=== PATIENT | female | born 1960 | race Caucasian/White ===

== ENCOUNTER → 2023-03-30 07:36 | Outpatient (REF) | payer MEDICARE, BC, OTHER, SELFPAY | LOC: WDC 07:36 | PROVIDERS: ATTENDING PHYSICIAN Family Medicine | DX: R92.2 Inconclusive mammogram (principal) | CPT/HCPCS: 76641 ==

== ENCOUNTER → 2023-12-29 09:01 | Outpatient (REF) | payer MEDICARE, SELFPAY | LOC: RAD 09:01 | PROVIDERS: ATTENDING PHYSICIAN Surgery Vascular Surgery; FAMILY PHYSICIAN Family Medicine | DX: I77.9 Disorder of arteries and arterioles, unspecified (principal); I65.23 Occlusion and stenosis of bilateral carotid arteries | CPT/HCPCS: 93880; 93922; 93925 ==

== ENCOUNTER → 2024-04-01 08:34 | Outpatient (REF) | payer OTHER, SELFPAY | LOC: WDC 08:34 | PROVIDERS: ATTENDING PHYSICIAN Family Medicine | DX: R92.2 Inconclusive mammogram (principal); Z12.39 Encounter for other screening for malignant neoplasm of breast | CPT/HCPCS: 76641 ==

== ENCOUNTER 2025-01-20 05:27 | Emergency (ER) | payer OTHER, SELFPAY ==
[2025-01-20 05:28] VITALS: BP 185/91; BMI 32.3
[2025-01-20 06:38] VITALS: BP 173/83
[2025-01-20 07:10] LABS: Urine Character Clear (Clear)
[2025-01-20 07:11] VITALS: BP 175/86
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
[2025-01-20 09:17] VITALS: BP 164/78
== END 2025-01-20 09:18 | disposition home or self-care (01) ==
LOC: EMR 05:27
PROVIDERS: EMERGENCY PHYSICIAN Emergency Medicine; FAMILY PHYSICIAN Family Medicine
DX: S09.90XA Unspecified injury of head, initial encounter (principal); W18.39XA Other fall on same level, initial encounter; Y93.01 Activity, walking, marching and hiking; Y92.008 Other place in unspecified non-institutional (private) residence as the place of occurrence of the external cause; E11.9 Type 2 diabetes mellitus without complications; I10 Essential (primary) hypertension; I69.354 Hemiplegia and hemiparesis following cerebral infarction affecting left non-dominant side; J44.9 Chronic obstructive pulmonary disease, unspecified; M54.2 Cervicalgia; G89.21 Chronic pain due to trauma; Z79.82 Long term (current) use of aspirin; Z87.891 Personal history of nicotine dependence
CPT/HCPCS: 99284; 70450; 81003; 81015

== ENCOUNTER 2025-01-21 02:12 | Emergency (ER) | payer OTHER, SELFPAY ==
[2025-01-21 02:17] VITALS: BP 148/83
[2025-01-21 02:18] VITALS: BP 161/84
--- NOTE | 2025-01-21 02:22 | ED.GENMED ---
Addendum entered and electronically signed by Charlie Collier DO 01/21/25 08:59:
6 AM ER attending signout pending case management PT evaluation
Asked to reevaluate the patient had numerous questions, on exam patient is calm cooperative smiling
Denies dysuria frequency is undergone CT scan knee x-ray, is convinced that she is weaker than normal on the right side when he tried to lift her x 2, she has chronic left-sided plegia from a stroke
CT scan report noted, x-ray of the knee noted will check CBC CMP await PT evaluation
Original Note:
History of Present Illness
General
Chief Complaint: Musculo-Skeletal Complaint
Source: patient
Exam Limitations: none
Time Seen by Provider: 01/21/25 02:20
Nursing documentation reviewed up to this point in time: agreed with
History of Present Illness
History of Present Illness:
Note:
CHIEF COMPLAINT(S)
Fall incident with pain in the knee
HISTORY OF PRESENT ILLNESS
The patient is a 64-year-old female with history of CVA with residual left-sided paralysis, COPD, hypertension, GERD, diabetes, primarily wheelchair-bound presents today with concerns of right knee pain following a fall. She presented following a
fall that occurred this morning while attempting to transfer from her bed to the wheelchair. The patient reports losing balance and falling onto her right knee and buttocks. The the fall was not preceded by dizziness or any syncope. Notably, she
suffered a similar fall the previous day that resulted in hitting her head, although todays incident did not involve a head injury. She denies headache, neck pain. Despite these falls, the patient denies frequent falling episodes, noting only two
recent occurrences recently. Pain is primarily localized to the knees and buttocks on the right side. The patient has not taken any medication for the pain. She does not report any new pain in the elbows or other areas. She is declining medication
for pain at this time. She reports that EMS was called because she could not get up from the floor on her own. She reports that she used to do physical therapy but has not had any physical therapy recently. Her neurologist is Dr. Vera and she
does not recall the last time she saw her. She denies new right sided weakness, headache, speech difficulty, confusion.
PAST MEDICAL AND SURGICAL HISTORY
The patient follows up with a neurologist, Dr. Vera, although she has not been seen recently.
PHYSICAL EXAM
General: Alert, no acute distress.
Skin: Warm, dry.
Head: Normocephalic, atraumatic.
Neck: Supple, trachea midline. No midline spinal tenderness
Eye Ears, nose, mouth and throat: Oral mucosa moist.
Cardiovascular: Regular rate and rhythm normal peripheral perfusion, No edema.
Respiratory: Respirations are non-labored. No wheezes, rales, rhonchi
Gastrointestinal: Abdomen nondistended, no tenderness to palpation.
Back: Normal range of motion, Normal alignment.
Musculoskeletal: Normal range of motion, normal strength. Mild tenderness to palpation along the right anterior knee, no ecchymosis or swelling noted. No joint laxity no pain with passive ROM. No pain with internal/external rotation of the right
hip.
Neurological: Alert and oriented to person, place, time, and situation. Speech normal. Left-sided paralysis noted. GCS 15. 5 out of 5 right-sided upper and lower extremity strength. Sensation intact bilaterally.
Psychiatric: Cooperative, appropriate mood & affect.
PROBLEM LIST
Acute Problems:
- Fall resulting in knee and buttock pain.
- Recent history of falls.
PLAN
- Assess for potential injuries with appropriate imaging and evaluation for stability if necessary.
- Evaluate the need for physical therapy or additional assistive devices to prevent future falls.
- Consider follow-up with the neurologist to address mobility and safety concerns.
DIFFERENTIAL DIAGNOSIS
The Differential Diagnosis includes, in no particular order and is not limited to:
- Mechanical fall due to mobility impairment
- Neurological disorder-related balance issues
- Musculoskeletal pain secondary to fall impact
- Possible undiagnosed vertigo or vestibular disorder
- Medication side effects (if applicable)
- Orthostatic hypotension
- Lower extremity weakness
- Coordination disorders
- Sensory neuropathy
- Deconditioning or generalized muscle weakness
CHART REVIEW
Reviewed ER physician documentation on 01/20/2025 patient seen for fall this morning when trying to get to the bathroom, she did strike her head, CT scan was normal and she was sent home
UPDATE
When attempting to discharge patient and wheeling patient out to the waiting room for her to pick her up, has been concerned about incomplete workup. He reports that he is concerned about her falling which seems new recently. He is
concerned about new right sided weakness, however on my exam, patient has full strength 5 out of 5 on the right side no evidence of new neurodeficit. Explained this to patient's . I spoke to patient's who is concerned that patient
is not safe to go home and will have another fall at home. Decision was made to have case management and physical therapy evaluate patient in the hospital this morning rather than as an outpatient. Patient and family in agreement with plan.
Anticipate discharge. Morning team made aware of case pending case management consult
MDM/DISPOSITION
64-year-old female with past medical history of CVA with residual left-sided paralysis presents to the ER today with concerns of right knee pain following a mechanical fall. She does not take anything for pain. On physical exam, she is
well-appearing no acute distress. Tenderness to palpation noted to the right anterior knee with good range of motion, 5 out of 5 strength, sensation intact. X-ray shows no evidence of fracture or dislocation.
Patient stable for discharge. Patient will require case management and PT eval in the ER. ED attending aware.
Past History
Past History
ED Past Medical History: CVA, NIDDM and Other (COPD, neck pain, back pain,)
ED Past Surgical History: Gynecological and Other
Social History
Tobacco: Former smoker
Alcohol: Occasional
Personal:
Living: with family
Family History
Family History: Negative Diabetes, Hypertension, Early CAD, Asthma or Cancer
Review of Systems
Review of Systems
All Other Systems: ROS reviewed and negative except as documented in HPI and ROS
Phy Exam
Physical Exam
Physical Exam:
see hpi
Course
Orders/Labs/Results
Orders:
Orders
01/21/25 02:33
CR Knee- Right 4 Or More View* Urgent
Comment:
Reason For Exam: right knee pain
01/21/25 03:25
Case Management Consult ONCE
Case Management Consult: VN/Home Care
Comment: Patient presents for second fall, wheelchair bound, left sided paralysis, consult for home health
nurse eval/PT/OT
Safety eval
01/21/25 04:46
Physical Therapy Consult [Pt Eval And Treat] Urgent
Activity Level: With Assistance
01/21/25 05:11
Acetaminophen [Tylenol] 650 mg PO NOW STA
Vital Signs
Initial and Last Documented VS:
Initial Vital Signs
BP
148/83
01/21/25 02:17
Last Documented Vital Signs
Temp Pulse Resp BP Pulse Ox
97.4 F 83 18 161/84 97
01/21/25 02:18 01/21/25 02:18 01/21/25 02:18 01/21/25 02:18 01/21/25 02:45
*Pulse Oximetry
SaO2: 97
Oxygen Mode of Delivery: Room air
Patient hypoxic: no
*Critical Care Note
Total Time (30-74mins, 75-104mins- exclusive of procedures): Not Applicable
ED Attending Note
-
Portions of this chart may have been created with voice recognition software.� Occasional wrong word or��sound alike� substitutions may have occurred due to the inherent limitations of voice recognition software.
Discharge Plan
Departure
Patient Disposition: Home (Routine Discharge)
Date of Disposition: 01/21/25
Time of Disposition: 04:46
Patient with high blood pressure during this ER visit?: Yes
Condition: Good
Discharge Problem:
Acute knee pain, Fall
Instructions: Preventing falls in adults, Knee pain - ED (DC), BLOOD PRESSURE
Prescriptions:
No Action
gabapentin 300 mg capsule
300 mg PO HS
rosuvastatin [Crestor] 40 mg Tablet
40 mg PO HS
duloxetine 60 mg capsule,delayed release(DR/EC)
60 mg PO DAILY
Ozempic 2 mg/dose (8 mg/3 mL) pen injector
2 mg SC TU
diphenhydramine HCl 25 mg Tablet
50 mg PO HS PRN (Reason: insomnia)
aspirin 81 MG tablet,chewable
81 mg PO DAILY
acetaminophen 325 mg Tablet
650 mg PO Q4HPRN PRN (Reason: ANGEL/mild pain/temp > 100.4 F) Qty: 0 0RF
bisacodyl 10 mg Suppository
10 mg MS DAILYPRN PRN (Reason: constipation) Qty: 30 0RF
albuterol sulfate [Ventolin HFA] 90 MCG/PUFF HFA aerosol inhaler
2 puff inhalation QID PRN (Reason: sob)
Referrals:
Tiara Vera MD [Non-Admitting Privileges, Neurology]
Yvette Gerard MD [Family Provider, Family Practice]
Activity Restrictions/Additional Instructions:
You should receive a call from our case management team to set up home care evaluation. I highly recommend scheduling a follow-up appointment with your neurologist.
You can take Tylenol as needed for any pain.
Please call your family doctor.
PLEASE RETURN TO THE ER SHOULD YOU DEVELOP ACUTE WORSENING OF YOUR KNEE PAIN, LOSS OF SENSATION IN YOUR RIGHT LOWER EXTREMITY, PALLOR, CHEST PAIN, SHORTNESS OF BREATH, HEADACHE, SPEECH DIFFICULTY, CONFUSION, FACIAL DROOP, LIGHTHEADEDNESS,
DIZZINESS, OR ANY OTHER SIGNS OR SYMPTOMS WORRISOME TO YOU.
Interventions
Interventions:
*Risk Screen - Suicide Last Done: 01/21/25 02:18
*General Assessment Last Done: 01/21/25 02:18
*Neglect/Abuse Screening Last Done: 01/21/25 02:18
*ED Influenza Vaccine History Last Done: 01/21/25 02:18
[facility] Fall Risk Assessment Tool Last Done: 01/21/25 02:12
ED-Musculoskeletal Assessment Last Done: 01/21/25 02:59
Discharge Date and Time
Print Language: SPANISH
[2025-01-21] MEDS: TYLENOL 650 MG PO (05:19)
--- NOTE | 2025-01-21 08:30 | EDCM ---
Addendum entered by Paola Alvarez 01/21/25 10:12:
Pt seen by PT, recommended Home PT vis SNF. Pt and comfortable with discharge home. Agreeable to referral to [facility]. Referral placed in Care [facility]. Dr Collier aware.
Original Note:
Received consult and met with pt and bedside in ED. Pt has L sided paralysis since stroke in 2017. Per her she was at [facility] for 4 years then he brought her home.
She is bed/wheelchair bound. is primary caregiver. Daughter is no longer paid caregiver, states [place] paraprofessional interpreter will be new caregiver provider but they have not started yet.
They live in a split level home, no MARLEY, with ramps throughout house. Pt has a hospital bed, motorized wheelchair, commode and portable shower.
Pt has gone to OP PT in past but not currently.
is concerned we did not do blood work, says she has developed weakness on her right side. Discussed with Dr Collier, he saw pt and blood work drawn.
Awaiting results of blood work and PT eval.
[2025-01-21 08:45] LABS: Hematocrit 37.4 % (37.0-47.0); Hemoglobin 12.3 g/dL (12.0-16.0); Mean Corp Hgb Conc. 32.9 g/dL (33.0-37.0); Mean Corpuscular Volume 79.4 fL (81.0-99.0); Nucleated Red Blood Cells % 0 %; Platelet Count 327 10^3/uL (130-400); Red Cell Dist. Width 15.0 % (11.5-14.5)
[2025-01-21 08:55] LABS: ALT (SGPT) 17 U/L (0-35); AST (SGOT) 19 U/L (14-36); Albumin 4.0 g/dl (3.5-5.0); Alkaline Phosphatase 68 U/L (38-126); Blood Urea Nitrogen 17 mg/dl (7-17); Calcium 9.0 mg/dl (8.4-10.2); Carbon Dioxide 28 mmol/L (22-30); Chloride 104 mmol/L (98-107); Glucose 114 mg/dl (70-99); Potassium 3.0 mmol/L (3.5-5.1); Sodium 137 mmol/L (135-145); Total Protein 7.2 g/dl (6.3-8.2); eGFR > 60.00
[2025-01-21 09:18] VITALS: BP 161/84; PULSE 83; O2SAT 97
[2025-01-21] MEDS: KCL 40 MEQ PO (09:31)
[2025-01-21 10:34] VITALS: BP 144/86
== END 2025-01-21 11:06 | disposition home or self-care (01) ==
LOC: EMR 02:12
PROVIDERS: EMERGENCY PHYSICIAN Emergency Medicine; FAMILY PHYSICIAN Family Medicine
DX: M25.561 Pain in right knee (principal); W01.0XXA Fall on same level from slipping, tripping and stumbling without subsequent striking against object, initial encounter; Z91.81 History of falling; J44.9 Chronic obstructive pulmonary disease, unspecified; E11.9 Type 2 diabetes mellitus without complications; I10 Essential (primary) hypertension; I69.354 Hemiplegia and hemiparesis following cerebral infarction affecting left non-dominant side; Z87.891 Personal history of nicotine dependence; Z99.3 Dependence on wheelchair
CPT/HCPCS: 99284; 73564; 80053; 85025